=== PATIENT | female | born 1970 | race Caucasian/White ===

== ENCOUNTER → 2019-09-02 | Outpatient (CLI) | payer MEDICAID, OTHER | END | disposition home or self-care (01) | LOC: CVU 11:29 | PROVIDERS: ATTEND Internal Medicine Cardiovascular Disease | DX: I11.9 Hypertensive heart disease without heart failure (principal); I42.9 Cardiomyopathy, unspecified | CPT/HCPCS: 93306; 93356 ==

== ENCOUNTER 2020-04-30 12:18 | Outpatient (CLI) | payer MEDICAID ==
[~2020-04-30 12:18] MED LIST: REGADENOSON 0.4 MG/5 ML SYRINGE ONE
== END 2020-05-01 23:59 | disposition home or self-care (01) ==
LOC: CFH 12:18
PROVIDERS: ATTEND Family Medicine Adult Medicine
DX: I25.9 Chronic ischemic heart disease, unspecified (principal); I10 Essential (primary) hypertension; I42.1 Obstructive hypertrophic cardiomyopathy
CPT/HCPCS: 78452; 93017; A9502; J2785

== ENCOUNTER 2021-02-22 08:40 | Day surgery (SDC) | payer MEDICAID ==
[2021-02-21 15:11] LABS: MEAN CORPUSCULAR HEMOGLOBIN 28.8 pg (27.0-34.8); MEAN CORPUSCULAR HGB CONC 33.3 g/dL (32.4-35.8); MEAN PLATELET VOLUME 7.8 fL (7.4-10.4); PLATELET COUNT 208 x10^3/uL (130-400); RED CELL DISTRIBUTION WIDTH 16.9 % (9.6-15.2)
[2021-02-21 15:12] LABS: HCT (SEDRATE) 43.2 % (34.6-47.8)
[2021-02-21 15:16] LABS: ANION GAP 5 mmol/L (5-15); CALCIUM 9.4 mg/dL (8.5-10.1); CHLORIDE 107 mmol/L (98-107); CREATININE 0.92 mg/dL (0.55-1.02)
[2021-02-21 15:17] LABS: INTERNATIONAL NORMALIZED RATIO 0.97 (0.93-1.1); PROTHROMBIN TIME 10.4 Seconds (9.6-11.5)
[2021-02-21 15:50] LABS: EOS#(MANUAL) 0.07 x10^3/uL (0.0-0.4); EOS% (MANUAL) 1 % (1-7); LYMPH#(MANUAL) 1.83 x10^3/uL (1-3.4); LYMPHS% (MANUAL) 25 % (22-44); MONOS#(MANUAL) 0.88 x10^3/uL (0.3-2.7); MONOS% (MANUAL) 12 % (2-9); SEG#(MANUAL) 4.53 x10^3/uL (1.8-6.8); SEGS% (MANUAL) 62 % (42-75)
[2021-02-21 15:51] LABS: <PLATELET ESTIMATE> ADEQUATE; <PLT MORPHOLOGY> NORMAL PLT MORPH; ANISOCYTOSIS 1+; MICROCYTOSIS 1+
[2021-02-21 15:52] LABS: OVALOCYTES 1+; STOMATOCYTES 1+
[~2021-02-22] VITALS: Ht 162.6 cm; Wt 140.4 kg
[~2021-02-22 08:40] MED LIST changes: +CITA40TA5 PO; +CYAN1TAB29 PO; +DICL75TA3 PO; +DULO60CA7 PO; +FERR-46 PO; +FOLI1TAB32 PO; +LAMO200T6 PO; +LORA2TAB99 PO; +NEBI20TA2 PO; +OMEP40CA8 PO; -REGADENOSON 0.4 MG/5 ML SYRINGE ONE; +SIMV5TAB14 PO; +TRAZ-175 PO; +VERA240T28 PO; +vitamin d3 PO
[2021-02-22 09:21] VITALS: BP 144/96
[2021-02-22 09:28] LABS: HCG UR SG 1.026 (1.003-1.030)
[2021-02-22] MEDS ORDERED: CHLORHEXIDINE 15 ML UDC ONE (09:29)
[2021-02-22] MEDS ORDERED: CHLORHEXIDINE 15 ML UDC PO ONE (09:30)
[2021-02-22] MEDS ORDERED: ONDANSETRON 2MG/ML, 2ML IVPush PRN (10:00)
[2021-02-22] MEDS ORDERED: KETOROLAC 30 MG/1 ML IVPush SCH ×2 (10:00)
[2021-02-22] MEDS ORDERED: VANCOMYCIN 1,000 MG in SODIUM CHLORIDE 0.9% 100 ML IV ONE (10:00)
[2021-02-22] MEDS ORDERED: HYDROcodone/APAP 10/325 MG TABLET PO PRN (10:00)
[2021-02-22] MEDS ORDERED: morphine SULFATE 10 MG/ML, 1ML IVPush PRN (10:00)
[2021-02-22] MEDS ORDERED: ACETAMINOPHEN 325 MG TABLET PO PRN ×2 (10:00→11:30)
[2021-02-22] MEDS ORDERED: VANCOMYCIN PMX 1GM/200ML 200 ML IV ONE (10:00)
[2021-02-22] MEDS ORDERED: PROMETHAZINE 25 MG/ML, 1ML IM PRN (10:00)
[2021-02-22] MEDS: LACTATED RINGERS 1,000 ML IV SCH ×2 (10:13→10:18)
[2021-02-22] MEDS ORDERED: MIDAZOLAM 1 MG/ML, 2ML ONE (10:53)
[2021-02-22] MEDS ORDERED: FENTANYL PF 100 MCG/2ML ONE ×3 (10:53→12:48)
[2021-02-22] MEDS ORDERED: BUPIVACAINE/PF 0.5% ONE (11:13)
[2021-02-22] MEDS ORDERED: methylPREDNISolone*ACETATE* 80 MG/ML ONE (11:14)
[2021-02-22] MEDS ORDERED: EPINEPHRINE 1 MG/ML, 1ML ONE (11:14)
[2021-02-22] MEDS ORDERED: methylPREDNISolone *ACETATE* 40 MG/ML ONE (11:14)
[2021-02-22] MEDS ORDERED: MEPERIDINE/PF 25MG/0.5ML IVPush PRN (11:30)
[2021-02-22] MEDS ORDERED: LABETALOL 5MG/ML, 20ML IV PRN (11:30)
[2021-02-22] MEDS ORDERED: PROMETHAZINE 25 MG/ML, 1ML IVPush PRN (11:30)
[2021-02-22] MEDS ORDERED: OXYcodone 5 MG/5 ML ORAL.SOL UDC PO PRN (11:30)
[2021-02-22] MEDS ORDERED: MIDAZOLAM 1 MG/ML, 2ML IV PRN (11:30)
[2021-02-22] MEDS ORDERED: ALBUTEROL SULFATE 2.5 MG/3 ML NPPB PRN (11:30)
[2021-02-22] MEDS ORDERED: HYDROmorphone 1 MG/ML, 1ML INJ IVPush PRN (11:30)
[2021-02-22] MEDS ORDERED: KETOROLAC 30 MG/1 ML ONE (11:53)
[2021-02-22] MEDS ORDERED: ONDANSETRON 2MG/ML, 2ML ONE (12:20)
[2021-02-22] MEDS ORDERED: PROPOFOL 10 MG/ML, 20ML ONE (12:20)
[2021-02-22] MEDS ORDERED: DEXAMETHASONE 4 MG/ML, 1ML ONE (12:20)
[2021-02-22] MEDS ORDERED: CEFAZOLIN 1,000 MG ONE ×2 (12:20)
[2021-02-22] MEDS ORDERED: SUCCINYLCHOLINE 20 MG/ML, 10ML ONE (12:20)
[2021-02-22] MEDS ORDERED: ROCURONIUM 10MG/ML,5ML ONE (12:20)
[2021-02-22] MEDS ORDERED: LIDOCAINE-MPF 2% ,5ML ONE (12:20)
[2021-02-22] MEDS: FENTANYL PF 100 MCG/2ML IV PRN ×3 (12:49→13:18)
[2021-02-22] MEDS ORDERED: OXYcodone 5 MG/5 ML ORAL.SOL UDC ONE (13:26)
[2021-02-22] MEDS ORDERED: ACETAMINOPHEN 650 MG/20.3 ML UDC ONE (13:26)
== END 2021-02-22 15:10 | disposition home or self-care (01) ==
LOC: OUT 08:40
PROVIDERS: ATTEND Orthopaedic Surgery Orthopaedic Surgery of the Spine
DX: S83.241A Other tear of medial meniscus, current injury, right knee, initial encounter (principal); S83.281A Other tear of lateral meniscus, current injury, right knee, initial encounter; M22.41 Chondromalacia patellae, right knee; M67.51 Plica syndrome, right knee; I10 Essential (primary) hypertension; I25.5 Ischemic cardiomyopathy; K21.9 Gastro-esophageal reflux disease without esophagitis; E66.01 Morbid (severe) obesity due to excess calories; Z20.822 Contact with and (suspected) exposure to COVID-19; Z68.43 Body mass index [BMI] 50.0-59.9, adult; Z79.01 Long term (current) use of anticoagulants; Z79.899 Other long term (current) drug therapy; Z88.0 Allergy status to penicillin; Z88.8 Allergy status to other drugs, medicaments and biological substances; X58.XXXA Exposure to other specified factors, initial encounter; Y93.89 Activity, other specified; Y92.89 Other specified places as the place of occurrence of the external cause; Y99.8 Other external cause status
CPT/HCPCS: 29880; 36415; 71046; 80048; 81025; 83036; 85025; 85610; 85651; 85730; 87635; 93005; J0171; J0330; J0690; J1030; J1040; J1100; J1885; J2250; J2405; J2704; J3010; J3370; J7120; U0003; U0005